=== PATIENT | female | born 1990 | race Caucasian/White ===

== ENCOUNTER 2016-10-23 18:47 | Emergency (ER) | payer OTHER ==
[~2016-10-23] VITALS: Ht 160 cm; Wt 93.3 kg
[~2016-10-23 18:47] MED LIST: ALBINS/ INH; ALBU1AER9 INH; ATV5X PO; ELET20TA PO; LORA10TA5 PO; MOME100A INH; ZLF/50 PO
[2016-10-23 18:55] VITALS: TEMP 36.8; Ht 160 cm; Wt 93.3 kg
[2016-10-23] MEDS ORDERED: ALBUT/IPRATROP 3MG/0.5MG NEB 3 ML VIAL INH STA ×2 (19:10→20:19)
[2016-10-23] MEDS ORDERED: DEXAMETHASONE SOD INJ 10 MG/ML VIAL IV ONE (19:15)
--- NOTE | 2016-10-23 20:07 | DIAGNOSTIC IMAGING REPORT ---
CHEST 2 VIEWS ROUTINE CLINICAL HISTORY: Asthma flare. COMPARISON STUDY: Chest CT July 22, 2006. FINDINGS: The lung volumes are normal and the lungs are clear. There is no pneumothorax or pleural effusion. Cardiac size is normal. Mediastinal contours are normal. There is no evidence of pulmonary edema. IMPRESSION: No acute cardiopulmonary findings. Electronically signed by: Kj Baird M.D. 10/23/2016 8:06 PM Dictated Date/Time: 10/23/2016 8:05 PM
[2016-10-23] MEDS ORDERED: VNTHFA/IN INH (21:09)
[2016-10-23] MEDS ORDERED: BUPR100T8 PO (21:09)
--- NOTE | 2016-10-23 21:33 | DIAGNOSTIC IMAGING REPORT ---
NECK RADIOGRAPHS CLINICAL HISTORY: WHEEZING COMPARISON STUDY: No previous studies for comparison. FINDINGS: Epiglottis is normal. Prevertebral soft tissues are unremarkable. No radiopaque foreign bodies are identified. IMPRESSION: Unremarkable radiographs of the neck. Electronically signed by: Kj Baird M.D. 10/23/2016 9:31 PM Dictated Date/Time: 10/23/2016 9:31 PM
[2016-10-23] MEDS ORDERED: PRED50TA PO (22:21)
--- NOTE | 2016-10-23 22:22 | EMERGENCY ROOM VISIT NOTE ---
ED Visit Note First contact with patient: 19:00 CC: Shortness of breath and wheezing times one week HISTORY OF PRESENT ILLNESS: Patient is a 25-year-old white female past medical history significant for asthma and seasonal allergies who presents to emergency department accompanied by her mother for evaluation of shortness of breath 1 week. She states her symptoms have been on and off. She believes that they have been triggered by her allergies. She is presently taking Claritin. She has been using albuterol nebulizers twice a day, and has been using her albuterol rescue inhaler 2-3 times per day. She did a nebulizer treatment about 90 minutes ago which did not provide her with any relief which prompted her to come to the emergency department. She reports that her asthma is generally well controlled. She had previously been on Dulera, but is not currently. She notes a dry, nonproductive cough, and a sense of chest tightness in addition to the wheezing. Her chest is sore when she coughs, but she otherwise denies any constant chest pain. She has never been hospitalized for her asthma, and has not been on any steroids for many years. She denies any cold or upper respiratory symptoms. No fever or chills. No nausea or vomiting. There has been no calf pain or swelling. She denies any ear pain, sinus or nasal congestion, postnasal drip or sore throat. REVIEW OF SYSTEMS: Review of systems as per HPI. All other systems reviewed were negative. 10 systems reviewed. PMH: Electronic medical records are reviewed and summarized as above/below. See Problem List. SOCIAL HISTORY: Patient lives at home with her mother. Employed in retail. Nonsmoker.. PHYSICAL EXAM: Vital Signs: Reviewed Nurse's notes. CONSTITUTIONAL: Patient is a well-appearing 25-year-old white female who is awake and alert and seated upright on the gurney in no acute distress. Audible upper respiratory sounds are appreciated. No stridor is noted. She is able to speak in full sentences. No conversational dyspnea. Oxygen saturation is 100% on room air. EYES: PERRL, EOMI, no discharge or injection. EARS: Tympanic membranes intact, not inflamed, have normal contour. External canals clear. NOSE: Nares patent, turbinates moist without rhinorrhea. MOUTH: Mucous membranes moist, no lesions, tongue and gums appear normal. THROAT: No pharyngeal injection, exudates, or tonsillar hypertrophy. Airway is patent. NECK: Supple, nontender, no lymphadenopathy. No stridor. HEART: Regular rate and rhythm without murmurs, ectopy, gallops, or rubs. LUNGS: Breath sounds are slightly diminished, with few scattered inspiratory and expiratory wheezes noted. No accessory muscle use or retractions. SKIN: Normal. NEUROLOGICAL: Sensory and motor functions grossly intact. Normal gait. EXTREMITIES: No swelling, cyanosis or tenderness in the arms or legs. EMERGENCY DEPARTMENT COURSE: IV lock was initiated. Patient was medicated with Decadron 10 mg IV. She was given a DuoNeb 2. Chest x-ray and soft tissue neck x-ray was performed and were unremarkable. On reassessment, the patient reported improvement in her chest tightness. Conservative care measures were discussed. She was encouraged to continue her breathing treatments and will be placed on a short course of oral prednisone. I suspect her symptoms are likely related to an exacerbation of her asthma, possibly related to her seasonal/ environmental allergies. Differential diagnoses also entertained included epiglottitis, laryngeo-tracheitis, foreign body aspiration, pneumonia, bronchitis, among others. The patient is hemodynamically stable. She has no evidence for airway compromise or increased work of breathing. She was educated on the worrisome signs or symptoms for which she should return to the emergency department. She is discharged home in good condition. CHEST 2 VIEWS ROUTINE CLINICAL HISTORY: Asthma flare. COMPARISON STUDY: Chest CT July 22, 2006. FINDINGS: The lung volumes are normal and the lungs are clear. There is no pneumothorax or pleural effusion. Cardiac size is normal. Mediastinal contours are normal. There is no evidence of pulmonary edema. IMPRESSION: No acute cardiopulmonary findings. NECK RADIOGRAPHS CLINICAL HISTORY: WHEEZING COMPARISON STUDY: No previous studies for comparison. FINDINGS: Epiglottis is normal. Prevertebral soft tissues are unremarkable. No radiopaque foreign bodies are identified. IMPRESSION: Unremarkable radiographs of the neck. Problem List Medical Problems: (1) Anxiety Status: Chronic (2) Asthma, Unspecified Status: Chronic (3) Depression Status: Chronic (4) Mood disorder Status: Resolved (5) Seasonal allergies Status: Chronic (6) Suicidal ideation Status: Resolved Current/Historical Medications Scheduled Albuterol Hfa (Ventolin Hfa), 2-4 PUFFS INH Q6H Bupropion (Wellbutrin Sr), 1 TAB PO QAM Lorazepam (Lorazepam), 0.5 MG PO BID Prednisone (Prednisone), 50 MG PO DAILY Sertraline HCl (Sertraline HCl), 50 MG PO HS Scheduled PRN Albuterol Sulf (Proventil 0.083% 2.5MG/3ML), 2.5 MG INH Q4H PRN for Asthma Symptoms Eletriptan (Relpax), 20 MG PO UD PRN for Migraine Loratadine (Claritin), 10 MG PO DAILY PRN for Allergies Allergies Coded Allergies: Sulfa Drugs (Unverified Adverse Reaction, Unknown, 10/23/16) Vital Signs Date Time Temp Pulse Resp B/P Pulse Ox O2 Delivery O2 Flow Rate FiO2 10/23/16 22:30 116 22 123/73 97 Room Air 10/23/16 20:30 112 18 120/79 99 Room Air 10/23/16 19:12 Room Air 99 10/23/16 18:55 36.8 116 25 122/74 100 Room Air Medications Administered Medications (Trade) Dose Ordered Sig/Maria Ines Route Start Time Stop Time Status Last Admin Dose Admin Albuterol/ Ipratropium (Duoneb) 3 ml NOW STAT INH 10/23/16 19:10 10/23/16 19:11 DC 10/23/16 19:16 3 ML Dexamethasone Sodium Phosphate (Decadron Inj) 10 mg NOW ONCE IV 10/23/16 19:15 10/23/16 19:16 DC 10/23/16 19:25 10 MG Albuterol/ Ipratropium (Duoneb) 3 ml NOW STAT INH 10/23/16 20:19 10/23/16 20:20 DC 10/23/16 20:28 3 ML Departure Information Impression Primary Impression: Asthma exacerbation Prescriptions Prednisone (Prednisone) 50 Mg Tab 50 MG PO DAILY for 5 Days, #5 TAB Prov: Kelley Torres PA 10/23/16 Referrals Maritza Mallory D.O. (PCP) Patient Instructions My [facility] Additional Instructions Prednisone 50mg: Once daily until the prescription is finished. It is best to take this earlier in the day as some patients note occasional difficulty falling asleep when taken in the late evening. Continue albuterol nebulizer treatments every 4 hours. Resume nasal steroid spray. Ibuprofen(Motrin, Advil) may be used for fever or pain. Use 600mg every six hours as needed. Take with food. Avoid using more than 2400mg in a 24 hour period. Do not use 2400mg per day for more than three consecutive days without physician direction. Prolonged inappropriate use can lead to stomach upset or ulcers. This is available over the counter and typically comes in 200mg tablets. (AND/OR) Acetaminophen(Tylenol) may be used for fever or pain. Use 1000mg every eight hours as needed. Avoid using more than 3000mg in a 24 hour period. This is available over the counter. Read all the package inserts or medication information paperwork provided. If you have any questions or concerns call your primary provider, pharmacist or the ER for assistance. Rest and drink plenty of fluids. Avoid smoke/smoking, fumes, dust, or any triggers in the past that may have affected your breathing. Continue current medications. Return to the ER for chest pain, difficulty breathing, fevers, vomiting, worsening of your condition, or as needed. Follow up with your primary physician this week for a recheck of your current condition.
[2016-10-23 22:30] VITALS: BP 123/73; PULSE 116; O2SAT 97
== END 2016-10-23 22:31 | disposition home or self-care (01) ==
LOC: C.EDB 18:48 → C.EDA 22:31
DX: J45.901 Unspecified asthma with (acute) exacerbation (principal); F32.9 Major depressive disorder, single episode, unspecified; Z79.899 Other long term (current) drug therapy; Z88.2 Allergy status to sulfonamides

== ENCOUNTER → 2016-12-05 | Outpatient (CLI) | payer OTHER ==
[~2016-12-05] MED LIST changes: -ALBU1AER9 INH; +BUPR100T8 PO; -MOME100A INH; +VNTHFA/IN INH
--- NOTE | 2016-12-08 18:56 | Pulmonary Function Report ---
Pulmonary Function Report Date of Service: [f__Service__Date/Time] . Pulmonary Function Report: Zahida Pittman Jadiel Date of study 12/05/2016 Interpretation based off ATS criteria Spirometry: Within normal limits Bronchodilator: Borderline significant response based off FEV1 Lung volumes: Mildly reduced total lung capacity but severely reduced residual volume 8% Diffusion: Within normal limits Interpretation: Normal spirometry but notably reduced lung volumes. The patient s chest x-ray and previous CAT scans were reviewed and no signs of interstitial lung changes which would be consistent with a reduced RV are noted. It is possible this particular portion of the study was an accurate/poorly performed.
== END | disposition home or self-care (01) ==
LOC: C.RC 11:45
PROVIDERS: ATTEND Physician Assistant
DX: J45.30 Mild persistent asthma, uncomplicated (principal)

== ENCOUNTER → 2016-12-11 | Outpatient (CLI) | payer OTHER ==
--- NOTE | 2016-12-16 11:38 | Sleep Study ---
Sleep Study Report Date of Service: December 11, 2016 Sleep Study Report Clinical data: The patient is a 26-year-old female with a BMI of 36.7 with a history of snoring, morning headaches, and daytime fatigue. On the evening of December 11, 2016, a home sleep apnea test was performed using a eBillme type 3 monitor. Recording results: Total recording time was 10 hours. Patient monitoring time / estimated sleep time was 9 hours. Respiratory data: There was no evidence of clinically significant sleep apnea seen. The BEAU was 1.6. There were 4 mixed and 5 central apneic episodes seen. Five hypopneas were recorded. The longest respiratory event was 25 seconds. Oximetry data: No significant hypoxemia was seen. Oxygen faizan was 89 percent. Mean saturation was 94 percent. Time below 89 percent was 0 minutes. Heart rate data: Heart rates ranged from 55 to 69 beats per minute. Snoring data: Snoring was recorded throughout the night. Impression: No evidence of clinically significant sleep apnea/hypopnea or nocturnal hypoxemia Recommendations: The patient should continue to practice good sleep hygiene. Copies To 1: Lor Mathew PA-C; Chirstopher Austin M.D.; Wade Yoon MD
== END | disposition home or self-care (01) ==
LOC: C.NEUR 09:17
PROVIDERS: ATTEND Physician Assistant
DX: R06.83 Snoring (principal)